=== PATIENT | male | born 1960 | race Caucasian/White ===

== ENCOUNTER 2019-08-24 20:33 | Emergency (ER) | payer BC ==
[~2019-08-24] VITALS: Ht 190.5 cm; Wt 106.8 kg
[2019-08-24 20:49] VITALS: BP 151/95
== END 2019-08-24 21:31 | disposition home or self-care (01) ==
LOC: ER 20:34
DX: S61.211A Laceration without foreign body of left index finger without damage to nail, initial encounter (principal); I10 Essential (primary) hypertension; X78.1XXA Intentional self-harm by knife, initial encounter; Y93.89 Activity, other specified; Y92.89 Other specified places as the place of occurrence of the external cause; Y99.8 Other external cause status
CPT/HCPCS: 99282